=== PATIENT | male | born 1950 | race Caucasian/White ===

== ENCOUNTER 2025-09-21 06:39 | Day surgery (SDC) | payer MEDICARE, BC ==
[2025-09-21] VITALS (12 sets, daily range): BP systolic 113–160; BP diastolic 53–78; PULSE 60–74; RESP 10–17; TEMP 98.6; O2SAT 94–99
[~2025-09-21] VITALS: Ht 180.3 cm; Wt 121.9 kg
--- NOTE | 2025-09-21 07:16 | ELECTROCARDIOGRAPH REPORT ---
[facility] Test Date: 2025-09-21 Test Time: 07:14:22 Pat Name: LLOYD SNYDER Department: [facility] Patient ID: [facility]-[id number] Room: Gender: M Dry Cleaner Presser: JANNET : 1950 Requested By: CHANELL SINGH Order Number: [id number] Reading MD: Dr. SUZETTE Franco Measurements Intervals [place] Rate: 60 P: 37 SD: 158 QRS: 5 QRSD: 115 T: 190 QT: 427 QTc: 427 Interpretive Statements Sinus rhythm Probable left atrial enlargement Incomplete right bundle branch block Nonspecific T abnormalities, lateral leads Electronically Signed On 09-21-2025 16:34:[address] SUZETTE Franco Please click the below link to view image of tracing.
[2025-09-21] MEDS ORDERED: MAGN400T39 PO (07:18)
[2025-09-21] MEDS ORDERED: EVOL140P3 SQ (07:18)
[2025-09-21] MEDS ORDERED: SEMA0.258 (07:18)
[2025-09-21] MEDS ORDERED: CARV-50 PO (07:18)
[2025-09-21] MEDS ORDERED: PANT40TA54 PO (07:18)
[2025-09-21] MEDS ORDERED: DULO30CA52 PO (07:18)
[2025-09-21] MEDS ORDERED: EZET10TA80 PO (07:18)
[2025-09-21] MEDS ORDERED: FINA5TAB11 PO (07:18)
[2025-09-21] MEDS ORDERED: ALLO100T PO (07:18)
[2025-09-21] MEDS ORDERED: LOSA50TA64 PO (07:18)
[2025-09-21] MEDS ORDERED: ASPI-1397 PO (07:18)
[2025-09-21] MEDS ORDERED: TORS20TA3 PO (07:18)
[2025-09-21] MEDS ORDERED: DOXA8TAB90 PO (07:18)
[2025-09-21] MEDS ORDERED: ONDA-104 PO (07:18)
[2025-09-21] MEDS ORDERED: HYDR-3972 PO (07:18)
[2025-09-21] MEDS ORDERED: HYDR50TA46 PO (07:18)
[2025-09-21] MEDS ORDERED: EMPA10TA PO (07:18)
[2025-09-21 07:39] LABS: MEAN PLATELET VOLUME 8.9 FL (7.4-10.4); RED CELL DISTRIBUTION WIDTH 14.2 % (11.5-14.5)
[2025-09-21 07:49] LABS: INR 1.0 INR
[2025-09-21] MEDS ORDERED: verapamil 2.5 mg/ml inj IV ONE (07:53)
[2025-09-21] MEDS ORDERED: LIDOcaine 1% (10mg/ml) 2ml vial ONE (07:53)
[2025-09-21] MEDS ORDERED: nitroGLYCERIN 500mcg/5mL D5W 5 ML IV ONE (07:53)
[2025-09-21] MEDS ORDERED: heparin 1,000unit/ml 10ml vial 10 ML ONE (07:53)
[2025-09-21 08:09] LABS: CREATININE 2.19 MG/DL (0.60-1.10); TOTAL CARBON DIOXIDE 28.0 MMOL/L (24-32); eCRCL 32 ML/MIN; eGFR 30 ML/MIN
[2025-09-21] MEDS ORDERED: midazolam 1 mg/ML 2ml injection ONE ×2 (08:31→08:42)
[2025-09-21] MEDS ORDERED: fentaNYL/PF 50MCG/1 ML 2ML syringe ONE (08:31)
[2025-09-21] MEDS ORDERED: LIDOcaine 1% 30ml preserv. free vial ONE (08:36)
[2025-09-21] MEDS ORDERED: iohexol 350 MG/ML 50ML vial IV ONE (08:47)
[2025-09-21] MEDS ORDERED: ondansetron/PF 4mg/2ml inj IV PRN (10:00)
[2025-09-21] MEDS ORDERED: OXAZEpam 15mg capsule PO PRN (10:05)
[2025-09-21] MEDS ORDERED: HYDROcodone/acetaminophen 10/325mg tab PO PRN (10:05)
[2025-09-21] MEDS ORDERED: HYDROcodone/acetaminophen 5mg/325mg tablet PO PRN (10:05)
[2025-09-21 15:47] LABS: ISTAT HGB MIX 13.6 g/dl (14.0-17.9); ISTAT Hct MIX 40 %PCV (42-52); ISTAT O2 SATURATION MIX VENOUS 69 % (60-80); ISTAT SOURCE BLNK
--- NOTE | 2025-09-29 16:54 | CARDIOLOGY REPORT ---
DATE OF SERVICE: 09/21/2025 DICTATING PHYSICIAN: Joanne Lazaro MD CARDIAC CATHETERIZATION REPORT DATE OF STUDY: 09/21/2025 PROCEDURES: * Access to the right brachial vein. * Access to the right common femoral artery. * Right heart catheterization. * Selective coronary angiography. * Selective left internal mammary artery angiography x1. * Selective coronary artery bypass graft angiography x2. * Conscious sedation monitoring time for 30 minutes. INDICATION: Aortic stenosis. PHYSICIAN: Joanne Lazaro MD DESCRIPTION OF PROCEDURE: After informed consent was obtained, the patient was brought to the lab, where he was prepped and draped in the usual sterile fashion. After adequate anesthesia was obtained using 1% lidocaine to the right brachial region, a 6-Hungarian sheath was inserted into the right brachial vein. Using a [place]-Sandra catheter, the catheter was advanced under fluoroscopy guidance into the outflow tract and into a wedge position, where pulmonary capillary wedge pressure and right-sided pressures were obtained. Following right heart catheterization, the [place] Sandra catheter was removed. Access to the right common femoral artery was then obtained. A 6-Hungarian sheath was inserted into the right femoral artery. Using a JL4 followed by JR4 catheter, selective coronary angiography, selective left internal mammary artery angiography and selective coronary artery bypass graft angiography x2 were performed. HEMODYNAMICS: For the patient's hemodynamics, please refer to the event log. FINDINGS: The left main coronary artery is a normal-caliber calcified vessel with mild disease. The left anterior descending coronary artery is severely diseased in its proximal and midportion. Competitive flow in the LAD is noted. The circumflex coronary artery is a normal-caliber vessel with mild disease. The obtuse marginal branch appears occluded. 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 The left internal mammary artery to the LAD is widely patent. The vein graft to the circumflex coronary artery is also widely patent. The vein graft to the RCA is also widely patent. IMPRESSION: * Please note that limited contrast was used in view of the patient's elevated creatinine. * Severely diseased proximal and mid LAD. The MEAD to the LAD is widely patent. 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 The vein graft to the obtuse marginal branch is patent. * Occluded right coronary artery. The vein graft to the right coronary artery is widely patent with mild disease. * Left ventriculography was not performed. Joanne Lazaro MD TID: [id number] RECEIPT: [id number]
== END 2025-09-21 11:55 | disposition home or self-care (01) ==
LOC: SSTAY O 06:39
PROVIDERS: ATTEND Student in an Organized Health Care Education/Training Program
DX: I35.0 Nonrheumatic aortic (valve) stenosis (principal); I25.82 Chronic total occlusion of coronary artery; I45.10 Unspecified right bundle-branch block; E78.5 Hyperlipidemia, unspecified; I13.0 Hypertensive heart and chronic kidney disease with heart failure and stage 1 through stage 4 chronic kidney disease, or unspecified chronic kidney disease; E11.22 Type 2 diabetes mellitus with diabetic chronic kidney disease; N18.32 Chronic kidney disease, stage 3b; I25.2 Old myocardial infarction; G47.33 Obstructive sleep apnea (adult) (pediatric); K21.9 Gastro-esophageal reflux disease without esophagitis; Z96.643 Presence of artificial hip joint, bilateral; Z95.0 Presence of cardiac pacemaker; Z88.0 Allergy status to penicillin; Z88.8 Allergy status to other drugs, medicaments and biological substances
CPT/HCPCS: 36415; 80048; 82803; 83735; 85014; 85025; 85610; 93005; 93457; 93567; 99152; 99153; A6258; C1751; C1894; J1644; J2003; J2250; J3010; J3490; J7030; Q9967; Z7610